=== PATIENT | male | born 1945 | race Caucasian/White ===

== ENCOUNTER 2020-12-16 15:57 | Inpatient (IN) ==
[2020-12-16] MEDS ORDERED: Acetaminophen 325 MG TABLET PO PRN (17:35)
[2020-12-16] MEDS ORDERED: Mag Hydrox/Al Hydrox/Simeth 30 ML UDC PO PRN (17:35)
[2020-12-16] MEDS ORDERED: Ondansetron 4 MG/2 ML VIAL IVP PRN (17:35)
[2020-12-16] MEDS ORDERED: Melatonin 3 MG TABLET PO PRN (17:35)
[2020-12-16] MEDS ORDERED: MOM Conc 10 ML UD.LIQ PO PRN (17:35)
[2020-12-16] MEDS ORDERED: Naloxone 0.4 MG/ML INJ IVP PRN (17:35)
[2020-12-16] MEDS ORDERED: *HR* LORazepam 2 MG/ML VIAL IVP PRN ×3 (18:14)
[2020-12-16] MEDS: Vancomycin 1,500 MG/265 ML IV.SOLN IVPB SCH (22:45)
[2020-12-17 03:35] LABS: Hematocrit 42.4 % (37.5-50.1); Hemoglobin 13.9 g/dL (12.9-16.9); Mean Corpuscular HGB Conc 32.8 g/dL (31.6-35.5); Mean Corpuscular Hemoglobin 30.3 pg (28.0-33.3); Mean Corpuscular Volume 92.4 fL (83.0-100.0); Mean Platelet Volume 9.9 fL (9.4-12.4); Platelet Count 148 K/mcL (140-400); Red Blood Count 4.59 M/mcL (4.19-5.50); Red Cell Distribution Width 12.4 % (11.5-14.5); White Blood Count 7.1 K/mcL (4.3-11.1)
[2020-12-17 03:51] LABS: BUN/Creatinine Ratio 17 (6-26); Blood Urea Nitrogen 18 mg/dL (8-23); Calcium 8.9 mg/dL (8.6-10.3); Carbon Dioxide 26 mEq/L (23-29); Chloride 105 mEq/L (98-107); Glucose 95 mg/dL (70-105); Magnesium 2.1 mg/dL (1.6-2.6); Osmolality,Calculated 286 (280-300); Potassium 4.1 mEq/L (3.5-5.1); Sodium 137 mEq/L (136-145); eGFR For African Americans > 60 (> 60); eGFR For Non-African Americans > 60 (> 60)
[2020-12-17] MEDS ORDERED: *HR* Enoxaparin 40 MG/0.4 ML SYRINGE SQ SCH (07:00)
[2020-12-17] MEDS: cefTRIAXone 1,000 MG in 0.9 % Sodium Chloride Mini Bag 100 ML IVPB SCH (08:47)
[2020-12-17] MEDS: Vancomycin 1,500 MG/265 ML IV.SOLN IVPB SCH (09:19)
[2020-12-17] MEDS ORDERED: Isovue-370 500 ML BOTTLE IVP ONE (10:13)
[2020-12-17] MEDS: DilTIAZem CD (24hr) 180 MG CAP.ER.24H PO SCH (14:02)
[2020-12-17] MEDS ORDERED: Gadolinium Contrast Agent (WT Based) IV PRN ×2 (16:42→17:00)
[2020-12-17] MEDS ORDERED: GADOBUTROL 30 MMOL/30 ML VIAL IVP ONE (18:30)
[2020-12-18] MEDS: *HR* Enoxaparin 40 MG/0.4 ML SYRINGE SQ SCH (05:10)
[2020-12-18] MEDS: DilTIAZem CD (24hr) 180 MG CAP.ER.24H PO SCH (08:55)
[2020-12-18] MEDS: cefTRIAXone 1,000 MG in 0.9 % Sodium Chloride Mini Bag 100 ML IVPB SCH (08:55)
[2020-12-18] MEDS: Aspirin Enteric Coated 81 MG Tablet PO SCH (08:55)
[2020-12-18] MEDS: atenoloL 50 MG TABLET PO SCH (08:55)
[2020-12-18] MEDS: Vancomycin 1,250 MG/262.5 ML IV.SOLN IVPB SCH ×2 (12:29→22:24)
[2020-12-19 02:20] LABS: Basophils # 0.1 K/mcL (0.0-0.2); Basophils % 0.9 %; Eosinophils # 0.5 K/mcL (0.0-0.6); Hematocrit 41.4 % (37.5-50.1); Immature Granulocytes % 0.6 % (0-4); Lymphocytes # 1.7 K/mcL (0.6-4.6); Lymphocytes % 30.9 %; Mean Corpuscular HGB Conc 33.8 g/dL (31.6-35.5); Mean Corpuscular Hemoglobin 30.7 pg (28.0-33.3); Mean Corpuscular Volume 90.8 fL (83.0-100.0); Mean Platelet Volume 9.2 fL (9.4-12.4); Monocytes # 0.6 K/mcL (0.0-1.3); Monocytes % 11.2 %; Neutrophils # 2.6 K/mcL (1.6-8.9); Platelet Count 166 K/mcL (140-400); Red Blood Count 4.56 M/mcL (4.19-5.50); Segmented Neutrophils % 47.4 %; White Blood Count 5.4 K/mcL (4.3-11.1)
[2020-12-19 02:37] LABS: BUN/Creatinine Ratio 14 (6-26); Blood Urea Nitrogen 11 mg/dL (8-23); Calcium 8.7 mg/dL (8.6-10.3); Carbon Dioxide 28 mEq/L (23-29); Chloride 107 mEq/L (98-107); Glucose 111 mg/dL (70-105); Osmolality,Calculated 290 (280-300); Sodium 140 mEq/L (136-145); eGFR For African Americans > 60 (> 60); eGFR For Non-African Americans > 60 (> 60)
[2020-12-19] MEDS: *HR* Enoxaparin 40 MG/0.4 ML SYRINGE SQ SCH (05:13)
[2020-12-19 06:40] VITALS: BP 161/80; PULSE 62; TEMP 97.9; O2SAT 96
[2020-12-19] MEDS: atenoloL 50 MG TABLET PO SCH (08:43)
[2020-12-19] MEDS: cefTRIAXone 1,000 MG in 0.9 % Sodium Chloride Mini Bag 100 ML IVPB SCH (08:43)
[2020-12-19] MEDS: Aspirin Enteric Coated 81 MG Tablet PO SCH (08:43)
[2020-12-19] MEDS: DilTIAZem CD (24hr) 180 MG CAP.ER.24H PO SCH (08:43)
[2020-12-19] MEDS: Vancomycin 1,250 MG/262.5 ML IV.SOLN IVPB SCH (11:32)
== END 2020-12-19 14:39 | disposition home or self-care (01) | DRG 603 ==
LOC: 3ANU → SUATTDRO 17:31
PROVIDERS: ADMIT Internal Medicine; ATTEND Internal Medicine